=== PATIENT | male | born 1975 | race Caucasian/White ===

== ENCOUNTER 2021-03-29 08:25 | Emergency (ER) | payer SELFPAY ==
[~2021-03-29] VITALS: Ht 165.1 cm; Wt 88.0 kg
--- NOTE | 2021-03-29 08:31 | NUR ---
The patient is [id number], from [place], weak and dizzy, hypotensive on scene 86/42. The patient is alert and oriented x2. Denies pain. In room air and denies SOB. Respiration regular and unlabored. Attached to the monitor. Warm blanket provided for comfort. Will continue to monitor the patient.
[2021-03-29] MEDS ORDERED: IV NS 0.9% 1,000 ML BAG IV ONE (09:00)
--- NOTE | 2021-03-29 09:59 | NUR ---
URINE COLLECTED AND SENT TO THE LAB
--- NOTE | 2021-03-29 09:59 | NUR ---
PHLEBATOMIST AT THE BEDSIDE
[2021-03-29 10:19] LABS: BASOPHILS % (AUTO) 0.3 % (0.0-2.0); EOSINOPHILS % (AUTO) 0.2 % (0.0-6.0); HEMATOCRIT 37 % (39-51); HEMOGLOBIN 11.9 g/dL (13.5-17.5); LYMPHOCYTES # (AUTO) 1.1 K/uL (0.8-4.8); MEAN CORPUSCULAR HGB CONC 33 g/dl (31.0-36.0); MEAN CORPUSCULAR VOLUME 87 fL (80-96); MONOCYTES # (AUTO) 0.9 K/uL (0.1-1.30); MONOCYTES % (AUTO) 7.6 % (2.0-12.0); NEUTROPHILS # (AUTO) 9.8 K/uL (1.8-8.9); NEUTROPHILS % (AUTO) 82.9 % (43.0-81.0); PLATELET COUNT (AUTO) 290 K/uL (150-450); WHITE BLOOD COUNT (AUTO) 11.8 K/uL (4.3-11.0)
[2021-03-29 10:28] LABS: CALCIUM, SERUM 7.5 mg/dL (8.5-10.1); CARBON DIOXIDE 24 mmol/L (21-32); CHLORIDE 105 mmol/L (98-107); CREATININE 1.2 mg/dL (0.6-1.3); GLUCOSE 109 mg/dL (74-106); POTASSIUM 4.9 mmol/L (3.5-5.1); SODIUM SERUM 138 mmol/L (136-145); UREA NITROGEN, BLOOD 22 mg/dL (7-18)
[2021-03-29 10:34] LABS: ALANINE AMINOTRANSFERASE 127 U/L (12-78); ALBUMIN 3.1 g/dL (3.4-5.0); ALKALINE PHOSPHATASE 70 U/L (46-116); ASPARTATE AMINOTRANSFERASE 50 U/L (15-37); BILIRUBIN,DIRECT 0.1 mg/dL (0.0-0.2); BILIRUBIN,TOTAL 0.5 mg/dL (0.2-1.0); TOTAL PROTEIN, SERUM 6.3 g/dL (6.4-8.2)
[2021-03-29 10:36] LABS: ALCOHOL, BLOOD < 3 mg/dL (0-0)
[2021-03-29 11:39] LABS: THYROID STIMULATING HORMONE 1.438 uIU/mL (0.358-3.74)
--- NOTE | 2021-03-29 13:21 | NUR ---
THE PATIENT IS SERVED WITH LUNCH. THE PATIENT TOLERATES PROVIDED MEAL WELL. PO FLUIDS ARE ENCOURAGED.
[2021-03-29 14:24] VITALS: BP 110/69
--- NOTE | 2021-03-29 14:24 | NUR ---
Patient given written and verbal discharge instructions. Patient verbalizes understanding of instructions. Patient is ambulatory with steady gait. Refuses offer of [facility] placement. Patient given list of available shelters in surrounding area.
== END 2021-03-29 14:24 | disposition home or self-care (01) ==
LOC: ER 08:43
DX: I95.9 Hypotension, unspecified (principal); R55 Syncope and collapse; E66.9 Obesity, unspecified; Z68.32 Body mass index [BMI] 32.0-32.9, adult
CPT/HCPCS: 36415; 70450; 71045; 80048; 80076; 80307; 80320; 84443; 84484; 85025; 93005; 96360; 99285; J7030; G0480